=== PATIENT | female | born 1985 | race Caucasian/White ===

== ENCOUNTER 2017-10-15 20:32 | Emergency (ER) | payer OTHER ==
[~2017-10-15] VITALS: Ht 149.9 cm; Wt 56.7 kg
== END 2017-10-16 04:59 | disposition home or self-care (01) ==
LOC: ER 20:32
DX: O20.0 Threatened abortion (principal); Z34.81 Encounter for supervision of other normal pregnancy, first trimester

== ENCOUNTER 2017-12-06 18:33 | Inpatient (IN) | payer OTHER ==
[~2017-12-06] VITALS: Ht 149.9 cm; Wt 58.5 kg
[2017-12-07] MEDS ORDERED: PRENATAL TABLE1 EACH PO (09:19)
== END 2017-12-09 10:21 | disposition home or self-care (01) | DRG 782 ==
LOC: LDR 18:33 → OB/GYN 12-07 19:48
PROC: 4A1HXCZ Monitoring of Products of Conception, Cardiac Rate, External Approach (ICD-10-PCS; principal; 2017-12-06)
PROC: BY49ZZZ Ultrasonography of First Trimester, Single Fetus (ICD-10-PCS; 2017-12-06)
PROC: BU4CZZZ Ultrasonography of Uterus and Ovaries (ICD-10-PCS; 2017-12-06)
DX: O46.8X2 Other antepartum hemorrhage, second trimester (principal); Z3A.14 14 weeks gestation of pregnancy

== ENCOUNTER 2018-03-07 11:35 | Inpatient (IN) | payer OTHER ==
[~2018-03-07] VITALS: Ht 149.9 cm; Wt 57.2 kg
[~2018-03-07 11:35] MED LIST: PRENATAL TABLE1 EACH PO
== END 2018-03-10 14:06 | disposition home or self-care (01) | DRG 778 ==
LOC: OBS/DEL 11:35 → LDR 03-08 17:02 → OB/GYN 03-08 17:02
PROC: 4A1HXCZ Monitoring of Products of Conception, Cardiac Rate, External Approach (ICD-10-PCS; principal; 2018-03-08)
DX: O60.02 Preterm labor without delivery, second trimester (principal); O20.0 Threatened abortion; O24.410 Gestational diabetes mellitus in pregnancy, diet controlled; Z3A.27 27 weeks gestation of pregnancy
CPT/HCPCS: 240

== ENCOUNTER 2018-03-31 22:15 | Outpatient (CLI) | payer OTHER | END 2018-04-03 13:30 | disposition home or self-care (01) | LOC: OBS/DEL 22:15 | DX: O24.410 Gestational diabetes mellitus in pregnancy, diet controlled (principal); O60.03 Preterm labor without delivery, third trimester; Z34.83 Encounter for supervision of other normal pregnancy, third trimester ==

== ENCOUNTER 2018-05-22 12:36 | Inpatient (IN) | payer OTHER ==
[~2018-05-22] VITALS: Ht 149.9 cm; Wt 64.4 kg
== END 2018-05-24 14:29 | disposition home or self-care (01) | DRG 767 ==
LOC: LDR 12:36 → OB/GYN 12:36
PROVIDERS: Obstetrics & Gynecology
PROC: 10D17Z9 Manual Extraction of Products of Conception, Retained, Via Natural or Artificial Opening (ICD-10-PCS; 2018-05-22)
PROC: 10E0XZZ Delivery of Products of Conception, External Approach (ICD-10-PCS; 2018-05-22)
PROC: 4A1HXCZ Monitoring of Products of Conception, Cardiac Rate, External Approach (ICD-10-PCS; 2018-05-22)
PROC: 0HQ9XZZ Repair Perineum Skin, External Approach (ICD-10-PCS; principal; 2018-05-22 18:00)
DX: O70.0 First degree perineal laceration during delivery (principal); Z37.0 Single live birth; O72.2 Delayed and secondary postpartum hemorrhage; O41.03X0 Oligohydramnios, third trimester, not applicable or unspecified; O24.410 Gestational diabetes mellitus in pregnancy, diet controlled; Z3A.37 37 weeks gestation of pregnancy